=== PATIENT | female | born 1960 | race Two or more races ===

== ENCOUNTER 2017-10-18 10:35 | Emergency (ER) | payer SELFPAY ==
--- NOTE | 2017-10-18 10:50 | EDPHY ---
H & P Stated Complaint: 2 months intermittent chest pressure/l arm numbness Time Seen by Provider: 10/18/17 10:49 HPI/ROS: CHIEF COMPLAINT: Chest pain HISTORY OF PRESENT ILLNESS: The patient presents to the ED with a 2 month history of intermittent chest pain. The patient reports her chest pain can occur with exertion and also at rest. She denies any pleuritic chest pain. She denies asymmetric calf pain or swelling. The patient denies prior history of hypertension, hyperlipidemia, diabetes, tobacco use or family history of heart disease. The patient is currently chest pain-free. The patient does report that she recently moved to [place] from [place] [facility] and does attribute her symptoms potentially to this affect. The patient denies any fever, cough or congestion. She denies additional acute complaints. REVIEW OF SYSTEMS: A comprehensive 10 point review of systems is otherwise negative aside from elements mentioned in the history of present illness. Source: Patient Exam Limitations: No limitations - Personal History Current Tetanus/Diphtheria Vaccine: Yes - Medical/Surgical History Hx Asthma: No Hx Chronic Respiratory Disease: No Hx Diabetes: No Hx Cardiac Disease: No Hx Renal Disease: No Hx Cirrhosis: No Hx Alcoholism: No Hx HIV/AIDS: No Hx Splenectomy or Spleen Trauma: No Other PMH: denies - Social History Smoking Status: Never smoked - Physical Exam Exam: General Appearance: Alert, no distress Eyes: Pupils equal and round no pallor or injection ENT, Mouth: Mucous membranes moist Respiratory: There are no retractions, lungs are clear to auscultation Cardiovascular: Regular rate and rhythm Gastrointestinal: Abdomen is soft and nontender, no masses, bowel sounds normal Neurological: A&O, normal motor function, normal sensory exam, normal cranial nerves Skin: Warm and dry, no rashes Musculoskeletal: Neck is supple nontender Extremities: symmetrical, full range of motion Constitutional: Initial Vital Signs Temperature (C) 36.4 C 10/18/17 10:39 Heart Rate 75 10/18/17 10:39 Respiratory Rate 17 10/18/17 10:39 Blood Pressure 123/91 H 10/18/17 10:39 O2 Sat (%) 97 10/18/17 10:39 O2 Delivery Mode Room Air Allergies/Adverse Reactions: No Known Allergies Allergy (Unverified 10/18/17 10:39) Home Medications: Medication Instructions Recorded NK [No Known Home Meds] 10/18/17 Medical Decision Making - Diagnostics EKG Interpretation: EKG: Complete interpretation has been separately recorded in the [employer] archive. Summary impression: Sinus rhythm, no ST segment elevation or depression ED Course/Re-evaluation: The patient presents to the ED with 2 months of intermittent chest pain. The patient has no risk factors for coronary artery disease. The patient's EKG is normal. Her vital signs are stable. She is asymptomatic in the emergency department. The patient's chest x-ray demonstrates no evidence of obvious disease by my interpretation. The patient was placed on a rn interventional in the emergency department in she remained asymptomatic. At this point time the etiology of her symptoms are somewhat uncertain. Given her age I would like her to follow up with our on- call director of analytical development within the next 3 days for consideration of a treadmill stress test. The patient will be discharged home with customary aftercare instructions and return precautions. Differential Diagnosis: Differential diagnosis considered includes acute coronary syndrome, esophageal spasm, myocardial infarction, pneumothorax - Data Points Laboratory Results: Laboratory Results 10/18/17 10:50 10/18/17 10:50 10/18/17 10/18/17 10:50 10:50 WBC 4.10 10^3/uL 10^3/uL (3.80-9.50) RBC 4.79 10^6/uL 10^6/uL (4.18-5.33) Hgb 13.9 g/dL g/dL (12.6-16.3) Hct 41.1 % % (38.0-47.0) MCV 85.8 fL fL (81.5-99.8) MCH 29.0 pg pg (27.9-34.1) MCHC 33.8 g/dL g/dL (32.4-36.7) RDW 13.0 % % (11.5-15.2) Plt Count 204 10^3/uL 10^3/uL (150-400) MPV 10.2 fL fL (8.7-11.7) Neut % (Auto) 46.4 % % (39.3-74.2) Lymph % (Auto) 39.5 % % (15.0-45.0) [place] % (Auto) 9.3 % % (4.5-13.0) Eos % (Auto) 3.9 % % (0.6-7.6) Baso % (Auto) 0.7 % % (0.3-1.7) Nucleat RBC Rel Count 0.0 % % (0.0-0.2) Absolute Neuts (auto) 1.90 10^3/uL 10^3/uL (1.70-6.50) Absolute Lymphs (auto) 1.62 10^3/uL 10^3/uL (1.00-3.00) Absolute Monos (auto) 0.38 10^3/uL 10^3/uL (0.30-0.80) Absolute Eos (auto) 0.16 10^3/uL 10^3/uL (0.03-0.40) Absolute Basos (auto) 0.03 10^3/uL 10^3/uL (0.02-0.10) Absolute Nucleated RBC 0.00 10^3/uL 10^3/uL (0-0.01) Immature Gran % 0.2 % % (0.0-1.1) Immature Gran # 0.01 10^3/uL 10^3/uL (0.00-0.10) Sodium 142 mEq/L mEq/L (135-145) Potassium 4.9 mEq/L mEq/L (3.5-5.2) Chloride 107 mEq/L mEq/L (97-110) Carbon Dioxide 25 mEq/l mEq/l (22-31) Anion Gap 10 mEq/L mEq/L (8-16) BUN 17 mg/dL mg/dL (7-23) Creatinine 0.7 mg/dL mg/dL (0.6-1.0) Estimated GFR > 60 Glucose 81 mg/dL mg/dL (70-100) Calcium 10.1 mg/dL mg/dL (8.5-10.4) Total Bilirubin 0.8 mg/dL mg/dL (0.1-1.4) Conjugated Bilirubin 0.3 mg/dL mg/dL (0.0-0.5) Unconjugated Bilirubin 0.5 mg/dL mg/dL (0.0-1.1) AST 22 IU/L IU/L (14-46) ALT 35 IU/L IU/L (9-52) Alkaline Phosphatase 80 IU/L IU/L (38-126) Troponin I < 0.012 ng/mL ng/mL (0.000-0.034) Total Protein 7.4 g/dL g/dL (6.3-8.2) Albumin 4.2 g/dL g/dL (3.5-5.0) Lipase 210 IU/L IU/L (23-300) Departure - Departure Disposition: Home, Routine, Self-Care Clinical Impression: Chest pain Condition: Good Instructions: Chest Pain (ED) Additional Instructions: 1. Based upon the testing done in the Emergency Department today we see no evidence of a heart attack. 2. We are unable to fully exclude coronary artery disease based upon the testing available in the Emergency Department. 3. For this reason, we would like you to be seen by cardiology for consideration of additional testing within the next 3 days. 4. Please contact the director of analytical development you have been referred to schedule this appointment as soon as possible. Their offices are typically open from 8:30am- 5pm M-F. 5. Please return to the Emergency Department immediately for any recurrent chest pain, difficulty breathing or other concerns. Referrals: Zach Hayes MD [Medical Doctor] - As per Instructions
--- NOTE | 2017-10-18 10:52 | CPEKG ---
Heart Rate: 74 RR Interval: 811 P-R Interval: 160 QRSD Interval: 90 QT Interval: 364 QTC Interval: 404 P [place]: -10 QRS [place]: 41 T Wave [place]: 39 EKG Severity - BORDERLINE ECG - EKG Impression: SINUS RHYTHM Electronically Signed By: Bertin Lees 18-Oct-2017 12:02:38
[2017-10-18 11:27] LABS: PLATELET COUNT 204 10^3/uL (150-400)
[2017-10-18 13:19] VITALS: BP 120/83; PULSE 70; RESP 16; TEMP 98.1; O2SAT 98
== END 2017-10-18 13:19 | disposition home or self-care (01) ==
DX: R07.9 Chest pain, unspecified (principal)